=== PATIENT | female | born 1985 | race Hispanic/Latino ===

== ENCOUNTER → 2025-07-17 | Outpatient (CLI) | payer BC ==
--- NOTE | 2025-07-18 00:04 | HMCIMG ---
EXAMINATION: COMPLETE TRANSVAGINAL ULTRASOUND OF PELVIS. CLINICAL HISTORY: Abnormal uterine and vaginal bleeding. COMPARISON: None provided. TECHNIQUE: Multiple real-time grayscale images of the pelvis were obtained with transvaginal transducer. In addition, color Doppler is medically necessary to perform to assess for vascularity and blood flow. FINDINGS: The uterus is anteverted, normal in caliber and measures 8.3 x 4.7 x 4.7 cm in the craniocaudal, AP, and transverse dimensions respectively. There is an intramural fibroid that measures 2.7 x 2.7 cm in the posterior wall. The endometrium measures approximately 0.45 cm. Cervix appears normal. The right ovary is normal in caliber and measures 1.6 x 1.2 x 2.1 cm. The left ovary is normal in caliber and measures 2.3 x 1.3 x 2.1 cm. There is a cyst that measures 1.7 x 1.3 x 2.2 cm with internal echoes. There is no free fluid in the cul-de-sac. IMPRESSION: Uterine fibroid. Left ovarian complex cyst. Recommend MRI pelvis. /[place]
== END | disposition home or self-care (01) ==
LOC: RAH 10:41
PROVIDERS: ATTEND Obstetrics & Gynecology
DX: D25.1 Intramural leiomyoma of uterus (principal); N83.292 Other ovarian cyst, left side; N93.8 Other specified abnormal uterine and vaginal bleeding
CPT/HCPCS: 76830